=== PATIENT | female | born 1980 | race Caucasian/White ===

== ENCOUNTER 2019-05-26 | Emergency (ER) | payer SELFPAY ==
[2019-05-26] MEDS ORDERED: PENICILLN VK500 MG PO (11:38)
[2019-05-26] MEDS ORDERED: LORTAB 7.57.5 MG PO (11:38)
== END 2019-05-26 11:57 | disposition home or self-care (01) | DRG 544 ==
DX: M84.68XA Pathological fracture in other disease, other site, initial encounter for fracture (principal); K02.9 Dental caries, unspecified

== ENCOUNTER 2020-11-13 10:43 | Emergency (ER) | payer OTHER ==
[~2020-11-13 10:43] MED LIST: LORTAB 7.57.5 MG PO; PENICILLN VK500 MG PO
[2020-11-13] MEDS ORDERED: LOSARTAN POTASS25 MG PO (11:14)
[2020-11-13] MEDS ORDERED: HYDROCHLOROT12.5 MG PO (11:15)
[2020-11-13] MEDS ORDERED: ASPIRIN 81 LOW81 MG PO (11:15)
[2020-11-13 11:53] LABS: IMMATURE GRANULOCYTES 0.2 % (0.0-5.0); MEAN CORPUSCULAR HGB CONC 33.3 g/dL CAL (32.0-36.0); NEUT# 5.04 thou/uL (2.00-7.15); RED BLOOD COUNT 4.31 mill/uL (4.20-5.60); RED CELL DISTRI WIDTH 12.2 % (11.5-15.5)
[2020-11-13 11:57] LABS: HEMATOCRIT 41.5 % (37.0-47.0); HEMOGLOBIN 13.8 g/dl (12.0-16.0); MEAN CELL VOLUME 96.3 fL CALC (80.0-100.0)
[2020-11-13 12:26] LABS: ALKALINE PHOSPHATASE 48 u/l (38-126); ANION GAP 13 (6-22 (CALC)); BILIRUBIN, TOTAL 0.4 mg/dL (0.0-1.4); BUN 15 mg/dL (7-17); BUN/CREATININE RATIO 23 (12-20 (CALC)); CARBON DIOXIDE 22 mmol/l (22-30); CHLORIDE 103 mmol/l (95-108); CREATININE 0.7 mg/dL (0.5-1.0); ETHYL ALCOHOL 0 mg/dl (0-30); GFR > 60 ML/MIN (>=60 (CALC)); GFR FOR AFR.AMER. > 60 ML/MIN (>=60 (CALC)); POTASSIUM 3.8 mmol/l (3.5-5.1); SGOT/AST 19 u/l (14-36); SODIUM 134 mmol/l (137-146); TOTAL PROTEIN 6.4 g/dL (6.3-8.2)
[2020-11-13 13:59] VITALS: BP 147/58
[2020-11-13 14:36] LABS: TSH, 3RD GENERATION 1.17 uIU/mL (0.47 - 4.68)
== END 2020-11-13 14:18 | disposition home or self-care (01) | DRG 310 ==
LOC: ED 10:43
PROVIDERS: Family Medicine
DX: R00.2 Palpitations (principal); I10 Essential (primary) hypertension; F17.200 Nicotine dependence, unspecified, uncomplicated; Z20.822 Contact with and (suspected) exposure to COVID-19